=== PATIENT | male | born 1940 | race Caucasian/White ===

== ENCOUNTER → 2016-10-14 | Outpatient (CLI) | payer OTHER ==
[~2016-10-14] MED LIST: AMOXIL500 MG PO; BAYER ASPIRIN R81 MG PO; CHOLESTEROL MED; CIPROFLOXACIN500 MG PO; FINASTERIDE5 MG PO; FLOMAX0.4 MG PO; HYDROCODONE BIT1 T11 PO; LEVOTHYROXINE0.1 MG PO; LISINOPRIL5 MG PO; MYCOLOG CREAM 115 GM T; NORCO 10-325 T1 EACH PO; OMNICEF300 MG PO; OXYCODONE5 M1 PO; PRAVACHOL20 MG PO; PROSTATE MED; PYRIDIUM200 M1 PO; SAW PALMETTO450 MG PO; TERAZOSIN5 MG PO
== END | disposition home or self-care (01) ==
LOC: CT 13:34
DX: N20.1 Calculus of ureter (principal); N20.0 Calculus of kidney; K42.9 Umbilical hernia without obstruction or gangrene; M47.896 Other spondylosis, lumbar region; K80.20 Calculus of gallbladder without cholecystitis without obstruction; K57.30 Diverticulosis of large intestine without perforation or abscess without bleeding

== ENCOUNTER 2017-05-21 15:06 | Emergency (ER) | payer OTHER ==
[2017-05-21 15:42] LABS: BASO % 0.5 % (0.0-1.0); EOS # 0.1 10*3/uL (0.0-0.4); EOS % 1.7 % (1.0-4.0); HEMATOCRIT 50.7 % (42.0-52.0); LYMPH # 1.6 10*3/uL (1.3-4.4); MEAN CELL VOLUME 84.6 fl (80.0-94.0); MEAN CORPUSCULAR HGB 28.4 pg (27.0-31.0); MEAN CORPUSCULAR HGB CONC 33.5 g/dl (33.0-37.0); MEAN PLATELET VOLUME 11.5 fl (9.6-12.3); MONO # 0.5 10*3/uL (0.1-1.0); MONO % 6.6 % (3.0-9.0); NEUT # 5.9 10*3/uL (2.3-7.9); NEUT % 72.1 % (47.0-73.0); PLATELET COUNT AUTOMATED 173 10*3/uL (130-400); RED BLOOD COUNT 5.99 10*6/uL (4.50-5.90); RED CELL DISTRI WIDTH 14.6 % (0-14.5); WHITE BLOOD COUNT 8.2 10*3/uL (4.8-10.8)
[2017-05-21 15:52] LABS: ACT PARTIAL THROMBO TIME 28.2 SECONDS (20.8-31.5); INTERNATIONAL NORM RATIO 1.2 (2.0-3.5)
== END 2017-05-21 17:30 | disposition home or self-care (01) ==
LOC: ED 15:06
PROVIDERS: Nurse Practitioner
DX: L76.22 Postprocedural hemorrhage of skin and subcutaneous tissue following other procedure (principal); Z98.890 Other specified postprocedural states; Z87.442 Personal history of urinary calculi; Z79.899 Other long term (current) drug therapy

== ENCOUNTER → 2017-07-09 | Outpatient (CLI) | payer OTHER | END | disposition home or self-care (01) | LOC: US 11:23 | DX: M79.89 Other specified soft tissue disorders (principal) ==

== ENCOUNTER 2019-10-22 14:15 | Emergency (ER) | payer OTHER ==
[~2019-10-22] VITALS: Ht 177.8 cm; Wt 108.9 kg
== END 2019-10-22 16:25 | disposition home or self-care (01) ==
LOC: ED 14:15
DX: S80.12XA Contusion of left lower leg, initial encounter (principal); S70.12XA Contusion of left thigh, initial encounter; I10 Essential (primary) hypertension; K21.9 Gastro-esophageal reflux disease without esophagitis; E11.9 Type 2 diabetes mellitus without complications; Z79.899 Other long term (current) drug therapy; W18.40XA Slipping, tripping and stumbling without falling, unspecified, initial encounter; Y93.54 Activity, bowling; Y92.89 Other specified places as the place of occurrence of the external cause; Y99.8 Other external cause status

== ENCOUNTER 2020-04-16 09:58 | Emergency (ER) | payer OTHER ==
[~2020-04-16] VITALS: Wt 104.3 kg
[2020-04-16 10:46] LABS: BUN 22 mg/dl (7-24); CHLORIDE 104 mmol/L (98-107); CREATININE 1.01 mg/dL (0.70-1.30); POTASSIUM 4.7 mmol/L (3.5-5.1); SODIUM 136 mmol/L (136-145); URIC ACID 6.5 mg/dL (3.5-7.2)
[2020-04-16] MEDS ORDERED: NAPROSYN500 MG PO (11:37)
[2020-04-16] MEDS ORDERED: TYLENOL325 M1 PO (11:37)
== END 2020-04-16 11:36 | disposition home or self-care (01) ==
LOC: ED 09:58
PROVIDERS: Emergency Medicine
DX: M13.831 Other specified arthritis, right wrist (principal); I10 Essential (primary) hypertension; K21.9 Gastro-esophageal reflux disease without esophagitis; E11.9 Type 2 diabetes mellitus without complications; Z79.899 Other long term (current) drug therapy

== ENCOUNTER 2021-05-07 16:34 | Inpatient (IN) | payer OTHER ==
[~2021-05-07] VITALS: Ht 177.8 cm; Wt 95.5 kg
[~2021-05-07 16:34] MED LIST changes: +NAPROSYN500 MG PO; +TYLENOL325 M1 PO
[2021-05-07 17:00] VITALS: BP 147/74
[2021-05-07 17:29] LABS: BASO % 0.2 % (0.0-1.0); HEMATOCRIT 48.2 % (42.0-52.0); LYMPH # 0.4 10*3/uL (1.3-4.4); LYMPH % 8.8 % (27.0-41.0); MEAN CORPUSCULAR HGB CONC 33.4 g/dl (33.0-37.0); MEAN PLATELET VOLUME 11.3 fl (9.6-12.3); MONO # 0.3 10*3/uL (0.1-1.0); MONO % 5.6 % (3.0-9.0); NEUT # 3.8 10*3/uL (2.3-7.9); NEUT % 85.2 % (47.0-73.0); PLATELET COUNT AUTOMATED 90 10*3/uL (130-400); RED BLOOD COUNT 5.74 10*6/uL (4.50-5.90); RED CELL DISTRI WIDTH 15.3 % (0-14.5); WHITE BLOOD COUNT 4.4 10*3/uL (4.8-10.8)
[2021-05-07 17:44] LABS: ABG BASE EXCESS 4.6 mmol/L (-2.0-2.0); ARTERIAL BLOOD GAS PH 7.463 (7.35-7.45)
[2021-05-07 17:45] LABS: ALKALINE PHOSPHATASE 64 U/L (45-117); BUN 32 mg/dl (7-24); CHLORIDE 99 mmol/L (98-107); CREATININE 1.24 mg/dL (0.70-1.30); POTASSIUM 3.6 mmol/L (3.5-5.1); SGOT/AST 142 IU/L (3-35); SGPT/ALT 87 U/L (12-78); SODIUM 134 mmol/L (136-145); TOTAL PROTEIN 7.3 gm/dL (6.4-8.2)
[2021-05-07 17:46] LABS: TROPONIN I 0.038 ng/ml (<0.045)
[2021-05-07] MEDS ORDERED: FINASTERIDE5 M1 PO (19:29)
[2021-05-07] MEDS ORDERED: TAMSULOSIN HCL0.4 MG PO (19:30)
[2021-05-07] MEDS ORDERED: LEVOTHYROXINE125 MCG PO (19:32)
[2021-05-07] MEDS ORDERED: METFORMIN HYDR500 MG PO (19:33)
[2021-05-07] MEDS ORDERED: CRESTOR5 MG PO (19:34)
[2021-05-07] MEDS ORDERED: IBU800 M1 PO (19:36)
[2021-05-07 20:06] VITALS: BP 107/60
[2021-05-07 20:30] VITALS: BP 111/65
[2021-05-08] VITALS (20 sets, daily range): BP systolic 58–142; BP diastolic 00–92
[2021-05-08 02:56] LABS: ARTERIAL BLOOD GAS PH 7.385 (7.35-7.45); ARTERIAL BLOOD GAS PO2 58.1 (80-90)
[2021-05-08 06:46] LABS: ABG BASE EXCESS 6.1 mmol/L (-2.0-2.0); ARTERIAL BLOOD GAS PH 7.435 (7.35-7.45); ARTERIAL BLOOD GAS PO2 62.7 (80-90)
[2021-05-08 07:13] LABS: BASO % 0.2 % (0.0-1.0); LYMPH # 0.8 10*3/uL (1.3-4.4); LYMPH % 12.2 % (27.0-41.0); MEAN CELL VOLUME 85.3 fl (80.0-94.0); MEAN CORPUSCULAR HGB 27.9 pg (27.0-31.0); MEAN CORPUSCULAR HGB CONC 32.7 g/dl (33.0-37.0); MEAN PLATELET VOLUME 11.4 fl (9.6-12.3); MONO # 0.2 10*3/uL (0.1-1.0); MONO % 3.6 % (3.0-9.0); NEUT # 5.2 10*3/uL (2.3-7.9); NEUT % 83.7 % (47.0-73.0); PLATELET COUNT AUTOMATED 95 10*3/uL (130-400); RED BLOOD COUNT 5.98 10*6/uL (4.50-5.90); RED CELL DISTRI WIDTH 15.5 % (0-14.5); WHITE BLOOD COUNT 6.2 10*3/uL (4.8-10.8)
[2021-05-08 07:23] LABS: INTERNATIONAL NORM RATIO 1.1 (2.0-3.5)
[2021-05-08 07:44] LABS: BUN 35 mg/dl (7-24); CHLORIDE 98 mmol/L (98-107); POTASSIUM 3.9 mmol/L (3.5-5.1); SODIUM 134 mmol/L (136-145)
[2021-05-08 07:53] LABS: ALKALINE PHOSPHATASE 66 U/L (45-117); CHOLESTEROL 116 mg/dL (<200); CREATININE 1.34 mg/dL (0.70-1.30); LDH 500 U/L (87-241); LDL CHOLESTEROL 48 mg/dL (9-159); SGOT/AST 133 IU/L (3-35); SGPT/ALT 87 U/L (12-78); TOTAL PROTEIN 7.6 gm/dL (6.4-8.2); TRIGLYCERIDES 72 mg/dl (<150)
[2021-05-08 10:01] LABS: FERRITIN 2199.7 ng/mL (22.0-322.0)
[2021-05-08] MEDS ORDERED: NEURONTIN300 MG PO (16:14)
[2021-05-08] MEDS ORDERED: ASPIRIN ADULT L81 M2 PO (16:15)
[2021-05-08] MEDS ORDERED: DULCOLAX STOOL100 M1 PO (16:17)
[2021-05-08] MEDS ORDERED: VITAMIN D350 MC2 PO (16:18)
[2021-05-09] VITALS: BP 99/66
[2021-05-09 04:00] VITALS: BP 121/71
[2021-05-09 06:16] LABS: ALBUMIN 2.8 gm/dl (3.1-4.5); ALKALINE PHOSPHATASE 61 U/L (45-117); BUN 42 mg/dl (7-24); CHLORIDE 103 mmol/L (98-107); CREATININE 1.04 mg/dL (0.70-1.30); LDH 522 U/L (87-241); POTASSIUM 3.9 mmol/L (3.5-5.1); SGOT/AST 94 IU/L (3-35); SGPT/ALT 69 U/L (12-78); SODIUM 138 mmol/L (136-145)
[2021-05-09 06:41] LABS: HEMATOCRIT 49.7 % (42.0-52.0); MEAN CELL VOLUME 85.4 fl (80.0-94.0); MEAN CORPUSCULAR HGB 27.8 pg (27.0-31.0); MEAN CORPUSCULAR HGB CONC 32.6 g/dl (33.0-37.0); MEAN PLATELET VOLUME 12.3 fl (9.6-12.3); PLATELET COUNT AUTOMATED 112 10*3/uL (130-400); RED BLOOD COUNT 5.82 10*6/uL (4.50-5.90); RED CELL DISTRI WIDTH 15.6 % (0-14.5); WHITE BLOOD COUNT 5.5 10*3/uL (4.8-10.8)
[2021-05-09 07:41] LABS: PLATELET SUFFICIENCY LOW (NORMAL); TOTAL CELLS COUNTED 100 #CELLS; TOXIC GRANULATION MODERATE
[2021-05-09 08:00] VITALS: BP 98/73
[2021-05-09 08:01] LABS: ABG BASE EXCESS 6.7 mmol/L (-2.0-2.0); ARTERIAL BLOOD GAS PH 7.487 (7.35-7.45); ARTERIAL BLOOD GAS PO2 60.7 (80-90)
[2021-05-09 12:00] VITALS: BP 118/77
[2021-05-09 16:00] VITALS: BP 126/70
[2021-05-09 20:00] VITALS: BP 120/71
[2021-05-10] VITALS: BP 130/76
[2021-05-10 04:00] VITALS: BP 92/58
[2021-05-10 06:19] LABS: HEMATOCRIT 49.2 % (42.0-52.0); LYMPH # 0.9 10*3/uL (1.3-4.4); LYMPH % 18.5 % (27.0-41.0); MEAN CELL VOLUME 85.6 fl (80.0-94.0); MEAN CORPUSCULAR HGB 27.8 pg (27.0-31.0); MEAN CORPUSCULAR HGB CONC 32.5 g/dl (33.0-37.0); MEAN PLATELET VOLUME 11.9 fl (9.6-12.3); MONO # 0.5 10*3/uL (0.1-1.0); MONO % 9.3 % (3.0-9.0); NEUT # 3.6 10*3/uL (2.3-7.9); NEUT % 71.8 % (47.0-73.0); PLATELET COUNT AUTOMATED 114 10*3/uL (130-400); RED BLOOD COUNT 5.75 10*6/uL (4.50-5.90); RED CELL DISTRI WIDTH 15.3 % (0-14.5); WHITE BLOOD COUNT 5.1 10*3/uL (4.8-10.8)
[2021-05-10 06:21] LABS: ALBUMIN 2.7 gm/dl (3.1-4.5); BUN 44 mg/dl (7-24); CHLORIDE 106 mmol/L (98-107); POTASSIUM 3.8 mmol/L (3.5-5.1); SODIUM 140 mmol/L (136-145)
[2021-05-10 06:26] LABS: ALKALINE PHOSPHATASE 58 U/L (45-117); CREATININE 0.96 mg/dL (0.70-1.30); LDH 542 U/L (87-241); SGOT/AST 83 IU/L (3-35); SGPT/ALT 64 U/L (12-78); TOTAL PROTEIN 6.6 gm/dL (6.4-8.2)
[2021-05-10 08:00] VITALS: BP 116/71
[2021-05-10 08:26] LABS: ABG BASE EXCESS 5.4 mmol/L (-2.0-2.0); ARTERIAL BLOOD GAS PH 7.469 (7.35-7.45); ARTERIAL BLOOD GAS PO2 66.4 (80-90)
[2021-05-10 12:00] VITALS: BP 135/84
[2021-05-10 15:29] VITALS: BP 117/81
[2021-05-10 20:00] VITALS: BP 115/73
[2021-05-11] VITALS: BP 138/82
[2021-05-11 04:00] VITALS: BP 96/59
[2021-05-11 06:18] LABS: BASO % 0.2 % (0.0-1.0); HEMATOCRIT 50.3 % (42.0-52.0); LYMPH # 1.2 10*3/uL (1.3-4.4); LYMPH % 22.1 % (27.0-41.0); MEAN CELL VOLUME 86.1 fl (80.0-94.0); MEAN CORPUSCULAR HGB 28.1 pg (27.0-31.0); MEAN CORPUSCULAR HGB CONC 32.6 g/dl (33.0-37.0); MEAN PLATELET VOLUME 12.1 fl (9.6-12.3); MONO # 0.5 10*3/uL (0.1-1.0); MONO % 9.9 % (3.0-9.0); NEUT # 3.5 10*3/uL (2.3-7.9); NEUT % 67.4 % (47.0-73.0); PLATELET COUNT AUTOMATED 117 10*3/uL (130-400); RED BLOOD COUNT 5.84 10*6/uL (4.50-5.90); RED CELL DISTRI WIDTH 15.2 % (0-14.5); WHITE BLOOD COUNT 5.2 10*3/uL (4.8-10.8)
[2021-05-11 06:30] LABS: ALBUMIN 2.9 gm/dl (3.1-4.5); BUN 41 mg/dl (7-24); CHLORIDE 107 mmol/L (98-107); POTASSIUM 3.9 mmol/L (3.5-5.1); SGOT/AST 93 IU/L (3-35); SGPT/ALT 71 U/L (12-78); SODIUM 141 mmol/L (136-145); TOTAL PROTEIN 6.9 gm/dL (6.4-8.2)
[2021-05-11 06:32] LABS: ALKALINE PHOSPHATASE 66 U/L (45-117); LDH 643 U/L (87-241)
[2021-05-11 08:00] VITALS: BP 117/73
[2021-05-11 12:00] VITALS: BP 129/77
[2021-05-11 16:00] VITALS: BP 116/62
[2021-05-11 20:00] VITALS: BP 127/86
[2021-05-12] VITALS: BP 111/74
[2021-05-12 04:00] VITALS: BP 121/67
[2021-05-12 05:48] LABS: ALBUMIN 2.8 gm/dl (3.1-4.5); ALKALINE PHOSPHATASE 72 U/L (45-117); BUN 37 mg/dl (7-24); CHLORIDE 106 mmol/L (98-107); POTASSIUM 3.9 mmol/L (3.5-5.1); SGOT/AST 93 IU/L (3-35); SGPT/ALT 84 U/L (12-78); SODIUM 142 mmol/L (136-145)
[2021-05-12 06:10] LABS: BASO % 0.1 % (0.0-1.0); EOS % 0.1 % (1.0-4.0); HEMATOCRIT 51.1 % (42.0-52.0); LYMPH # 1.3 10*3/uL (1.3-4.4); LYMPH % 16.6 % (27.0-41.0); MEAN CELL VOLUME 86.3 fl (80.0-94.0); MEAN CORPUSCULAR HGB 27.9 pg (27.0-31.0); MEAN CORPUSCULAR HGB CONC 32.3 g/dl (33.0-37.0); MEAN PLATELET VOLUME 12.4 fl (9.6-12.3); MONO # 0.6 10*3/uL (0.1-1.0); MONO % 8.2 % (3.0-9.0); NEUT # 5.7 10*3/uL (2.3-7.9); NEUT % 74.7 % (47.0-73.0); PLATELET COUNT AUTOMATED 129 10*3/uL (130-400); RED BLOOD COUNT 5.92 10*6/uL (4.50-5.90); RED CELL DISTRI WIDTH 15.2 % (0-14.5); WHITE BLOOD COUNT 7.6 10*3/uL (4.8-10.8)
[2021-05-12 08:00] VITALS: BP 119/82
[2021-05-12 08:47] LABS: ABG BASE EXCESS 3.8 mmol/L (-2.0-2.0); ARTERIAL BLOOD GAS PH 7.472 (7.35-7.45); ARTERIAL BLOOD GAS PO2 58.9 (80-90)
[2021-05-12 12:00] VITALS: BP 113/83
[2021-05-12 16:00] VITALS: BP 101/67
[2021-05-12 20:00] VITALS: BP 146/86
[2021-05-13] VITALS (7 sets, daily range): BP systolic 94–134; BP diastolic 65–85
[2021-05-13 05:50] LABS: ALBUMIN 2.8 gm/dl (3.1-4.5); BUN 28 mg/dl (7-24); CHLORIDE 108 mmol/L (98-107); CREATININE 0.92 mg/dL (0.70-1.30); POTASSIUM 3.9 mmol/L (3.5-5.1); SGOT/AST 85 IU/L (3-35); SGPT/ALT 87 U/L (12-78); SODIUM 141 mmol/L (136-145)
[2021-05-13 05:53] LABS: ALKALINE PHOSPHATASE 75 U/L (45-117); TOTAL PROTEIN 6.7 gm/dL (6.4-8.2)
[2021-05-13 06:19] LABS: BASO % 0.2 % (0.0-1.0); EOS # 0.1 10*3/uL (0.0-0.4); EOS % 0.7 % (1.0-4.0); HEMATOCRIT 54.3 % (42.0-52.0); LYMPH # 1.3 10*3/uL (1.3-4.4); LYMPH % 16.4 % (27.0-41.0); MEAN CELL VOLUME 86.6 fl (80.0-94.0); MEAN CORPUSCULAR HGB 27.4 pg (27.0-31.0); MEAN CORPUSCULAR HGB CONC 31.7 g/dl (33.0-37.0); MEAN PLATELET VOLUME 12.2 fl (9.6-12.3); MONO # 0.4 10*3/uL (0.1-1.0); MONO % 5.4 % (3.0-9.0); NEUT # 6.1 10*3/uL (2.3-7.9); NEUT % 76.4 % (47.0-73.0); PLATELET COUNT AUTOMATED 147 10*3/uL (130-400); RED BLOOD COUNT 6.27 10*6/uL (4.50-5.90); RED CELL DISTRI WIDTH 15.1 % (0-14.5)
[2021-05-13 21:19] LABS: ABG BASE EXCESS 3.4 mmol/L (-2.0-2.0); ARTERIAL BLOOD GAS PH 7.422 (7.35-7.45); ARTERIAL BLOOD GAS PO2 42.3 (80-90)
[2021-05-14] VITALS: BP 95/49
[2021-05-14 04:00] VITALS: BP 100/58
[2021-05-14 05:58] LABS: ALBUMIN 2.9 gm/dl (3.1-4.5); ALKALINE PHOSPHATASE 96 U/L (45-117); BUN 33 mg/dl (7-24); CHLORIDE 107 mmol/L (98-107); CREATININE 1.14 mg/dL (0.70-1.30); POTASSIUM 4.6 mmol/L (3.5-5.1); SGOT/AST 65 IU/L (3-35); SGPT/ALT 77 U/L (12-78); SODIUM 141 mmol/L (136-145); TOTAL PROTEIN 6.5 gm/dL (6.4-8.2)
[2021-05-14 06:14] LABS: BASO # 0.1 10*3/uL (0.0-0.1); BASO % 0.6 % (0.0-1.0); EOS # 0.1 10*3/uL (0.0-0.4); HEMATOCRIT 56.5 % (42.0-52.0); LYMPH # 1.1 10*3/uL (1.3-4.4); MEAN CELL VOLUME 86.7 fl (80.0-94.0); MEAN CORPUSCULAR HGB 28.4 pg (27.0-31.0); MEAN CORPUSCULAR HGB CONC 32.7 g/dl (33.0-37.0); MEAN PLATELET VOLUME 12.4 fl (9.6-12.3); MONO # 0.3 10*3/uL (0.1-1.0); MONO % 3.5 % (3.0-9.0); NEUT # 8.1 10*3/uL (2.3-7.9); NEUT % 82.8 % (47.0-73.0); PLATELET COUNT AUTOMATED 182 10*3/uL (130-400); RED BLOOD COUNT 6.52 10*6/uL (4.50-5.90); RED CELL DISTRI WIDTH 17.3 % (0-14.5); WHITE BLOOD COUNT 9.8 10*3/uL (4.8-10.8)
[2021-05-14 08:00] VITALS: BP 104/68
[2021-05-14 08:53] LABS: ABG BASE EXCESS -1.4 mmol/L (-2.0-2.0); ARTERIAL BLOOD GAS PH 7.374 (7.35-7.45); ARTERIAL BLOOD GAS PO2 60.6 (80-90)
[2021-05-14 12:00] VITALS: BP 104/68
[2021-05-14 16:00] VITALS: BP 109/76
== END 2021-05-14 16:26 | disposition hospice, inpatient (51) | DRG 871 ==
LOC: ED 16:34 → ICCU 17:54 → EDHOLD 17:54 → 4E 18:47 → ICCU 05-08 06:18
PROVIDERS: Internal Medicine; Internal Medicine Critical Care Medicine; Physician Assistant; Social Worker Clinical; Student in an Organized Health Care Education/Training Program; ADMIT Internal Medicine; ATTEND Internal Medicine
PROC: 5A09357 Assistance with Respiratory Ventilation, Less than 24 Consecutive Hours, Continuous Positive Airway Pressure (ICD-10-PCS; 2021-05-07)
PROC: XW033E5 Introduction of Remdesivir Anti-infective into Peripheral Vein, Percutaneous Approach, New Technology Group 5 (ICD-10-PCS; principal; 2021-05-08)
PROC: 5A09357 Assistance with Respiratory Ventilation, Less than 24 Consecutive Hours, Continuous Positive Airway Pressure (ICD-10-PCS; 2021-05-08)
PROC: 5A0935A Assistance with Respiratory Ventilation, Less than 24 Consecutive Hours, High Flow/Velocity Cannula (ICD-10-PCS; 2021-05-08)
PROC: XW033H5 Introduction of Tocilizumab into Peripheral Vein, Percutaneous Approach, New Technology Group 5 (ICD-10-PCS; 2021-05-08)
PROC: 5A09457 Assistance with Respiratory Ventilation, 24-96 Consecutive Hours, Continuous Positive Airway Pressure (ICD-10-PCS; 2021-05-09)
PROC: 5A0935A Assistance with Respiratory Ventilation, Less than 24 Consecutive Hours, High Flow/Velocity Cannula (ICD-10-PCS; 2021-05-09)
DX: A41.9 Sepsis, unspecified organism (principal); U07.1 COVID-19; J12.82 Pneumonia due to coronavirus disease 2019; J96.01 Acute respiratory failure with hypoxia; E44.0 Moderate protein-calorie malnutrition; R73.9 Hyperglycemia, unspecified; I95.9 Hypotension, unspecified; R00.1 Bradycardia, unspecified; N40.0 Benign prostatic hyperplasia without lower urinary tract symptoms; R65.20 Severe sepsis without septic shock; D69.6 Thrombocytopenia, unspecified; R74.01 Elevation of levels of liver transaminase levels; Z51.5 Encounter for palliative care; Z90.49 Acquired absence of other specified parts of digestive tract; Z79.1 Long term (current) use of non-steroidal anti-inflammatories (NSAID); Z79.899 Other long term (current) drug therapy; Z68.31 Body mass index [BMI] 31.0-31.9, adult

== ENCOUNTER 2021-05-14 16:48 | Inpatient (IN) | payer OTHER ==
[~2021-05-14 16:48] MED LIST changes: +ASPIRIN ADULT L81 M2 PO; +CRESTOR5 MG PO; +DULCOLAX STOOL100 M1 PO; +FINASTERIDE5 M1 PO; +IBU800 M1 PO; +LEVOTHYROXINE125 MCG PO; +METFORMIN HYDR500 MG PO; +NEURONTIN300 MG PO; +TAMSULOSIN HCL0.4 MG PO; +VITAMIN D350 MC2 PO
[2021-05-14 16:56] VITALS: BP 110/70
== END 2021-05-14 17:39 | DRG 177 ==
LOC: ICCU 16:48
PROVIDERS: ADMIT Internal Medicine; ATTEND Internal Medicine
DX: U07.1 COVID-19 (principal); J96.01 Acute respiratory failure with hypoxia; J12.82 Pneumonia due to coronavirus disease 2019; Z51.5 Encounter for palliative care; Z66 Do not resuscitate